=== PATIENT | female | born 1940 | race Caucasian/White ===

== ENCOUNTER → 2024-01-15 08:09 | Outpatient (REF) | payer MEDICARE, BC, SELFPAY | LOC: HWRAD 08:09 | PROVIDERS: ATTENDING PHYSICIAN Family Medicine | DX: J18.9 Pneumonia, unspecified organism (principal) | CPT/HCPCS: 71260; Q9967 ==

== ENCOUNTER 2024-06-23 16:45 | Inpatient (IN) | payer MEDICARE, BC, SELFPAY ==
[2024-06-23] VITALS (11 sets, daily range): BP systolic 122–165; BP diastolic 68–90; PULSE 99; BMI 32.4; BMI 31.0
[2024-06-23 09:27] LABS: % Basophils 0.6 % (0-2); % Eosinophils 2.2 % (0-6); % Immature Granulocytes 0.4 % (0-0.5); % Lymphocytes 7.8 % (20.5-51.1); % Monocytes 5.2 % (1.7-9.3); % Neutrophils 83.8 % (42.2-75.2); Absolute Basophils 0.1 10^3/uL (0-0.2); Absolute Eosinophils 0.2 10^3/uL (0-0.7); Absolute Lymphocytes 0.6 10^3/uL (1.2-3.4); Absolute Monocytes 0.4 10^3/uL (0.1-0.6); Absolute Neutrophils 6.8 10^3/uL (1.4-6.5); Hematocrit 38.5 % (37.0-47.0); Hemoglobin 12.5 g/dL (12.0-16.0); Mean Corp Hgb Conc. 32.5 g/dL (33.0-37.0); Mean Corpuscular Hgb 28.8 pg (27.0-31.0); Mean Corpuscular Volume 88.7 fL (81.0-99.0); Mean Platelet Volume 9.4 fL (7.4-10.4); Nucleated Red Blood Cells % 0 %; Platelet Count 296 10^3/uL (130-400); Red Blood Cell Count 4.34 10^6/uL (4.20-5.40); Red Cell Dist. Width 15.9 % (11.5-14.5); White Blood Cell Count 8.1 10^3/uL (4.8-10.8)
[2024-06-23 09:42] LABS: ALT (SGPT) 19 U/L (0-35); AST (SGOT) 23 U/L (14-36); Albumin 3.5 g/dl (3.5-5.0); Alkaline Phosphatase 102 U/L (38-126); Blood Urea Nitrogen 9 mg/dl (7-17); Calcium 9.5 mg/dl (8.4-10.2); Carbon Dioxide 29 mmol/L (22-30); Chloride 104 mmol/L (98-107); Glucose 104 mg/dl (70-99); Potassium 3.8 mmol/L (3.5-5.1); Sodium 138 mmol/L (135-145); Total Bilirubin 0.5 mg/dl (0.2-1.3); eGFR > 60.00
--- NOTE | 2024-06-23 11:05 | ED.GENMED ---
History of Present Illness
General
Chief Complaint: Breathing Problem
Source: patient
Exam Limitations: none
Time Seen by Provider: 06/23/24 10:40
Nursing documentation reviewed up to this point in time: agreed with
History of Present Illness
History of Present Illness:
83-year-old female with past medical history of COPD does not wear oxygen, abdominal aortic aneurysm, peripheral arterial disease hypertension hyperlipidemia presents here for evaluation. Patient complains of worsening shortness of breath for the
past several days to 1 week. She does have a history of COPD but typically is not that short of breath. Today she noticed he was very short of breath and noted that her pulse ox was 90% on room air but her heart rate was elevated in the 130s. She
does feel palpitations worse last night. She denies any associated chest pain. She denies any abdominal pain back pain. Patient reports she has some mild lower extremity swelling but this is not new for her.
Patient is a smoker. She is followed by booth manager Dr. Crews here
Past History
Past History
ED Past Medical History: HTN
ED Past Surgical History: Orthopedic
Review of Systems
Review of Systems
Allergies reviewed?: Yes
All Other Systems: ROS reviewed and negative except as documented in HPI and ROS
Constitutional: Reports no symptoms
Respiratory: Reports trouble breathing
Cardiac: Reports palpitations; Denies chest pain, diaphoresis or syncope
ABD/GI: Reports no symptoms
: Reports no symptoms
Musculoskeletal: Reports no symptoms
Skin: Reports no symptoms
Neurological: Reports no symptoms
Psychiatric: Reports no symptoms
Phy Exam
General Physical Exam
General Presentation: no apparent distress
General age: appears stated age
General Skin: warm and dry
General Habitus: normal
General Mental: alert
Cardiovascular Exam
Cardiovascular Exam: tachycardia
Pulmonary Exam
Pulmonary Exam: lungs clear and no respiratory distress
Neurological Exam
Neurological Exam: alert and oriented x3
Musculoskeletal Exam
Musculoskeletal Exam: full ROM
Skin Exam
Skin Exam: normal color and warm/dry
Scores
Heart Failure Risk
Heart Failure Risk Score: Not Applicable
Course
Orders/Labs/Results
Orders:
Orders
06/23/24 08:51
Electrocardiogram (*1) Urgent
Reason for Study: Chest Pain
EKG- Treatment ONCE
06/23/24 09:16
Complete Blood Count/With Diff Urgent
Comprehensive Metabolic Panel Urgent
TSH Reflex To Free T4 Urgent
Comment: ADD ON
06/23/24 11:03
Add On- LAB Urgent
Tests Added?: tsh with reflexive t4
Chest [CR Chest - 2 Views ] Urgent
Comment:
Reason For Exam: SOB
06/23/24 11:04
Electrocardiogram (*1) Stat
Reason for Study: Other
Other Reason for Exam: chest pain
EKG- Treatment ONCE
0.9% Sodium Chloride 500 ml [Nss] 500 ml IV BOLUS
06/23/24 12:42
DDimer [D-Dimer] Urgent
06/23/24 12:46
Dexamethasone Sod Phosphate [Decadron] 10 mg IV NOW STA
06/23/24 12:47
Albuterol Nebs [Ventolin Nebules] 2.5 mg INH R NOW STA
06/23/24 13:19
CT Chest PE Study Urgent
Comment:
Reason For Exam: sob elevated d dimer
Abnormal Lab Results
06/23/24 06/23/24
09:16 12:42
MCHC 32.5 L g/dL
(33.0-37.0)
RDW 15.9 H %
(11.5-14.5)
Absolute Neuts (auto) 6.8 H 10^3/uL
(1.4-6.5)
Absolute Lymphs (auto) 0.6 L 10^3/uL
(1.2-3.4)
Neutrophils % 83.8 H %
(42.2-75.2)
Lymphocytes % 7.8 L %
(20.5-51.1)
D-Dimer 2.00 H ug/mlFEU
(0.00-0.50)
Glucose 104 H mg/dl
(70-99)
Total Protein 6.0 L g/dl
(6.3-8.2)
06/23/24 09:16
06/23/24 09:16
Vital Signs
Initial and Last Documented VS:
Initial Vital Signs
Temp Pulse Resp BP Pulse Ox
97.6 F 89 16 150/85 98
06/23/24 08:49 06/23/24 08:49 06/23/24 08:49 06/23/24 08:49 06/23/24 08:49
Last Documented Vital Signs
Temp Pulse Resp BP Pulse Ox
97.6 F 111 25 146/76 96
06/23/24 08:49 06/23/24 14:00 06/23/24 14:00 06/23/24 14:00 06/23/24 14:00
MDM/Problems Addressed
MDM/Problems Addressed:
Patient is an 83-year-old female who presents with shortness of breath palpitations since last night. She is a smoker and has history of COPD she is followed by Dr. Crews.
Patient with some decreased breath sounds mild wheeze was given 1 nebulizer treatment with fluids because of elevated heart rate and IV Decadron. Because of persistent tachycardia and shortness of breath CT was done to rule out PE which was
negative. Patient however still with some shortness of breath and mildly tachycardic despite fluids labs unremarkable with normal white count normal renal function will admit
Chronic conditions affecting care:
copd/smoker
*Radiology
Radiology exam reviewed: radiology read reviewed
*Pulse Oximetry
Patient hypoxic: no
*EKG
Interpreted by ED Provider?: Yes
Heart Rate: 108
Rate: tachycardiac
Rhythm: PVC's
Ischemia: non-specific ST changes
*Equipment Lead Interpretation
Rate: tachycardiac
*Critical Care Note
Total Time (30-74mins, 75-104mins- exclusive of procedures): Not Applicable
ED Attending Note
-
Portions of this chart may have been created with voice recognition software.� Occasional wrong word or��sound alike� substitutions may have occurred due to the inherent limitations of voice recognition software.
Discharge Plan
Departure
Patient Disposition: Admit
Date of Disposition: 06/23/24
Time of Disposition: 16:06
Admit to: Med/Surg
Admit to doctor: hospitalist
Presentation/result/management discussed w/ accepting MD/DO: Hospitalist
Patient with high blood pressure during this ER visit?: Yes
Condition: Fair
Covid-19: Not Applicable
Discharge Problem:
copd exacerbation
Prescriptions:
No Action
cilostazol 100 mg Tablet
100 mg PO BID
cetirizine 10 mg Tablet
10 mg PO DAILY
gabapentin 300 mg Capsule
300 mg PO TID
zolpidem 10 mg Tablet
10 mg PO HS
Patient Comments:
LAST FILLED 10/16/22 #30 X30 DAYS SUPPLY
albuterol sulfate 90 mcg/actuation Hfa Aerosol Inhaler
2 puff INHALATION Q6HPRN PRN (Reason: sob)
Spiriva with HandiHaler 18 mcg Capsule, W/Inhalation Device
1 cap INHALATION DAILY
ferrous sulfate 324 mg (65 mg iron) Tablet,Delayed Release (Dr/Ec)
324 mg PO DAILY
fenofibrate 150 mg Capsule
150 mg PO DAILY
aspirin 81 mg Capsule
81 mg PO DAILY
atenolol-chlorthalidone 50-25 mg Tablet
0.5 tab PO DAILY
chlorthalidone 25 mg Tablet
25 mg PO DAILY
prednisone 10 mg tablet
10 mg PO DIRECTED Qty: 90 0RF
Rx Instructions:
4 tabs daily for 5 days, then 3 tabs x 5 days, then 2 tabs x 5 days, then 1 daily x 5days
amoxicillin-pot clavulanate 875-125 mg tablet
1 tab PO Q12H Qty: 14 0RF
doxycycline hyclate 100 mg capsule
100 mg PO BID Qty: 14 0RF
fluticasone propion-salmeterol [Advair Diskus] 250-50 mcg/dose Blister With Device
1 inh INHALATION BID
Referrals:
Renetta Young MD [Family Provider] -
Interventions
Interventions:
*Risk Screen - Suicide Last Done: 06/23/24 08:49
*General Assessment Last Done: 06/23/24 11:21
*Neglect/Abuse Screening Last Done: 06/23/24 08:49
*ED- Fall Risk Assessment Last Done: 06/23/24 11:21
*ED COVID-19 Vaccine History Last Done: 06/23/24 11:21
ED- Cardiac Assessment Last Done: 06/23/24 11:21
ED- Pulmonary Assessment Last Done: 06/23/24 11:21
Discharge Date and Time
Print Language: MONTSERRATIAN
[2024-06-23] MEDS: NSS 500 IV (11:26)
[2024-06-23 12:49] LABS: TSH Reflex To Free T4 2.44 uIU/ml (0.47-4.68)
[2024-06-23] MEDS: DECADRON 10 MG IV (12:50)
[2024-06-23] MEDS: VENTOLIN NEBULES 2.5 MG INH (12:50)
--- NOTE | 2024-06-23 16:27 | HPS.HSE ---
Family Physician
-
Family Physician: Renetta Young
Chief Complaint
-
Shortness of breath, palpitations
History of Present Illness
83-year-old female, lives alone, noticed increasing shortness of breath that started last evening before bed. Managed to fall asleep but when she woke up this morning had ongoing shortness of breath and palpitations prompting her evaluation in the
emergency room today.
Denies any sick contacts.
Has had a chronic cough productive of clear phlegm, possibly worse over the past month.
Not on home oxygen. She still smokes unfortunately.
Cannot remember the last time she was hospitalized for COPD exacerbation.
Medical History
Past Medical History
Past Medical History: Reports Other
Additional Past Medical History:
COPD/asthma overlap
Abdominal aortic aneurysm
Essential hypertension
PAD
Hyperlipidemia
MELVIN on CPAP
Lung nodules
Duodenal ulcer
Nephrolithiasis
Colon polyps
Past Surgical History: Reports Gynocological, Orthopedic and Other
Additional Past Surgical History:
Sigmoid resection�2007
Right total hip replacement�2009
Left total hip replacement�2011
Left hip wound dehiscence with wound VAC for 3 months
Bilateral knee replacement�2006
Social History
Tobacco: Smoker
Alcohol: Occasional
Drug: None
Personal:
Living: Alone
Employment: Not Employed
Family History
Family History: Not pertinent
Allergies / Home Medications
Allergies reflects when Allergies were last updated in [email or web address].
Home Medications with original date entered in [email or web address]
Allergy/Medication List:
Allergies
Allergy/AdvReac Type Severity Reaction Status Date / Time
adhesive Allergy EDEMA Verified 10/19/22 13:39
amlodipine besylate Allergy EDEMA Verified 10/19/22 13:39
[From [facility]]
beclomethasone dipropionate Allergy NIGHTMARES Verified 10/19/22 13:39
[From Qvar]
clindamycin Allergy Unknown Verified 10/19/22 13:39
meperidine HCl [From Demerol] Allergy Nausea Verified 10/19/22 13:39
morphine Allergy Nausea Verified 10/19/22 13:39
oxycodone HCl [From Percocet] Allergy Nausea Verified 10/19/22 13:39
sulfamethoxazole Allergy Unknown Verified 10/19/22 13:39
[From Bactrim]
tramadol Allergy Unknown Verified 10/19/22 13:40
trimethoprim [From Bactrim] Allergy Unknown Verified 10/19/22 13:39
varenicline Allergy Unknown Verified 10/19/22 13:40
oxycodone [From Percocet] AdvReac Mild Nausea Verified 10/19/22 21:59
Home Medications
albuterol sulfate 90 mcg/actuation aerosol inhaler 2 puff inhalation Q6HPRN PRN sob 10/19/22
aspirin 81 mg capsule 81 mg PO DAILY Blood Clot Prevention/Tx 10/19/22
cetirizine 10 mg tablet 10 mg PO DAILY Allergies 10/19/22
cilostazol 100 mg tablet 100 mg PO BID Heart Disease/Condition 10/19/22
fenofibrate 150 mg capsule 150 mg PO DAILY High Cholesterol 10/19/22
ferrous sulfate 324 mg (65 mg iron) tablet,delayed release 324 mg PO DAILY Supplement 10/19/22
gabapentin 300 mg capsule 300 mg PO TID Neurological Condition 10/19/22
tiotropium bromide 18 mcg capsule with inhalation device (Spiriva with HandiHaler) 1 cap inhalation DAILY Lung/Breathing Issues 10/19/22
zolpidem 10 mg tablet 10 mg PO HS Sleep 10/19/22
atenolol 50 mg-chlorthalidone 25 mg tablet 0.5 tab PO DAILY Blood Pressure 10/20/22
amoxicillin 875 mg-potassium clavulanate 125 mg tablet 1 tab PO Q12H #14 tabs 10/21/22
chlorthalidone 25 mg tablet 25 mg PO DAILY 10/21/22
doxycycline hyclate 100 mg capsule 100 mg PO BID #14 caps 10/21/22
fluticasone 250 mcg-salmeterol 50 mcg/dose blistr powdr for inhalation (Advair Diskus) 1 inh inhalation BID 10/21/22
prednisone 10 mg tablet 10 mg PO DIRECTED #90 tabs 10/21/22
Review of Systems
-
History Source: Patient
A 12 point ROS was completed and negative except as noted: Yes
Physical Exam
Vital Signs
Vital Signs
Temp Pulse Resp BP Pulse Ox
97.6 F 111 25 146/76 96
06/23/24 08:49 06/23/24 14:00 06/23/24 14:00 06/23/24 14:00 06/23/24 14:00
Physical Exam
General: Well Developed, Well Nourished, No Apparent Distress and Comfortable
HEENT: NormoCephalic, Anicteric and Moist mucous membranes
Respiratory: Wheezes
Cardiac: S1/S2 and Regular Rhythm
Breast: Deferred by me
GI: Soft, Non Tender and Non Distended
Genito-urinary: Deferred by me
Musculoskeletal: No Clubbing, No Cyanosis, Edema, Left Lower Extremity (Nonpitting) and Edema, Right Lower Extremity (Nonpitting)
Skin: Warm and Dry
Neuro: AO x 3
Hematologic/Lymphatic: No Lymphadenopathy
Psych: Calm
Laboratory Results
-
06/23/24 09:16
06/23/24 09:16
Laboratory Results
Total Bilirubin 0.5 mg/dl (0.2-1.3) 06/23/24 09:16
AST 23 U/L (14-36) 06/23/24 09:16
ALT 19 U/L (0-35) 06/23/24 09:16
Alkaline Phosphatase 102 U/L (38-126) 06/23/24 09:16
Impression/Plan
-
Acute hypoxic respiratory insufficiency -suspect related to acute COPD exacerbation. Reportedly pulse ox was in the 80% range at home according to patient. Does not use oxygen at home.
Admit to MedSurg. Initiate oxygen to keep pulse ox at 90% or better.
Acute COPD exacerbation -continue steroids, nebs, home inhalers. Check influenza and COVID.
Provide Acapella, incentive spirometer, Mucinex.
She is known to the pulmonary service, Dr. Rees.
Tobacco dependence -she does not feel ready to quit. Provide nicotine replacement therapy as needed.
Essential hypertension -resume losartan.
Hyperlipidemia
PAD
MELVIN
Chronic pulmonary nodules -appear benign and they are followed by the pulmonary service.
Obesity due to excess calories
Full code
Updated patient's son at the bedside.
[2024-06-23 17:01] LABS: COVID-19 Antigen Negative (Negative)
[2024-06-23] MEDS: XOPENEX 1.25 MG INHALANT SOLUTION INH ×2 (17:49→22:28)
[2024-06-23] MEDS: TYLENOL 650 MG PO (21:37)
[2024-06-23] MEDS: MUCINEX PO (21:38)
[2024-06-23] MEDS: PLETAL 100 MG PO (21:38)
[2024-06-23] MEDS: AMBIEN 10 MG PO (21:38)
[2024-06-23] MEDS: ASPIR LOW (ENTERIC COATED) 81 MG PO (21:38)
[2024-06-23] MEDS: NEURONTIN 300 MG PO (21:38)
[2024-06-23] MEDS: LOVENOX 40 MG SC (21:38)
[2024-06-23] MEDS: SPIRIVA RESPIMAT 2.5 MCG INH (22:27)
[2024-06-23] MEDS: ADVAIR HFA 230/21 MCG INHALER 2 PUFF INH (22:28)
[2024-06-24 03:00] VITALS: BP 144/77
[2024-06-24] MEDS: DECADRON 4 MG IV ×3 (06:00→22:13)
[2024-06-24] MEDS: XOPENEX 1.25 MG INHALANT SOLUTION INH ×3 (07:15→20:23)
[2024-06-24] MEDS: ADVAIR HFA 230/21 MCG INHALER 2 PUFF INH ×2 (07:15→20:23)
[2024-06-24] MEDS: SPIRIVA RESPIMAT 2.5 MCG 2 PUFF INH (07:16)
[2024-06-24] MEDS: NEURONTIN 300 MG PO ×3 (07:40→22:08)
[2024-06-24] MEDS: MUCINEX 600 MG PO ×2 (07:40→21:00)
[2024-06-24] MEDS: COZAAR 25 MG PO (07:40)
[2024-06-24] MEDS: ZYRTEC 10 MG PO (07:41)
[2024-06-24] MEDS: PLETAL 100 MG PO (07:41)
[2024-06-24 07:43] VITALS: BP 161/79
[2024-06-24] MEDS: TRICOR 145 MG PO (07:44)
--- NOTE | 2024-06-24 11:15 | W.PN.HOSP.TC ---
Today's Communication/Plan
-
Continue steroids, nebs, inhalers
Add azithromycin
Provide Acapella, incentive spirometer
Stop losartan
start diltiazem
Assessment / Plan
Assessment / Plan
Gen-AAOx3, NAD
HEENT-NC, AT, anicteric, clear oral mm
Neck-supple
CV-reg, no M, +S1/S2
Lungs-mild expiratory wheezing bilaterally
Abd-soft, NT, ND
Ext-no edema
Musculoskeletal-no cyanosis, clubbing
Skin-warm and dry
Neuro-grossly non-focal
Psych-calm, cooperative
Acute hypoxic respiratory insufficiency -suspect related to acute COPD exacerbation. Reportedly pulse ox was in the 80% range at home according to patient. Does not use oxygen at home.
Oxygenation adequate on 2 L, wean down as able.
CT chest negative for pulmonary embolism. Changes of emphysema noted. Chronic appearing pulmonary nodules noted.
Acute COPD exacerbation -continue steroids, nebs, home inhalers. Influenza and COVID-negative. Add azithromycin.
Provide Acapella, incentive spirometer, Mucinex.
She is known to the pulmonary service, Dr. Rees.
Tobacco dependence -she does not feel ready to quit. Provide nicotine replacement therapy as needed.
Essential hypertension -she is requesting that we discontinue losartan due to possible side effects. Will start diltiazem. Patient agreeable.
Hyperlipidemia
PAD -reduce dose of cilostazol by 50% given potential interaction with diltiazem. Discussed with patient.
MELVIN
Chronic pulmonary nodules -appear benign and they are followed by the pulmonary service.
Obesity due to excess calories
Full code
Anticipated Discharge: Within 24 hours
Subjective/Interval History
-
Date of Service: June 24, 2024
Patient seen and examined. No new complaints. Still with cough and wheezing.
Objective Data
-
Vital Signs:
Vital Signs
Temp Pulse Resp BP Pulse Ox
97.7 F 97 16 161/79 95
06/24/24 03:00 06/24/24 07:43 06/24/24 07:43 06/24/24 07:43 06/24/24 07:55
Review of Systems
-
History Source: Patient
All other systems: Reviewed and negative
[2024-06-24] MEDS: ZITHROMAX 500 MG PO (11:50)
[2024-06-24] MEDS: TYLENOL 650 MG PO (13:51)
[2024-06-24] MEDS: CARDIZEM 30 MG PO ×2 (15:23→22:11)
[2024-06-24 16:00] VITALS: BP 109/61
--- NOTE | 2024-06-24 16:53 | CM ---
Alert awake oriented patient who lives alone in independent living at [facility].Her 2 month ago.Support given. She lives in 1 story home with 1 step to enter.She is independent in driving and in all activities of daily
living.Offered VN she declined.
CPAP with Rezmed walker cane shower chair
Never had VN/Had [facility] and acute rehab stay hx
Pharmacy [facility]
PCP Dr Young
PLAN Home no needs
[2024-06-24] MEDS: LOVENOX 40 MG SC (17:34)
[2024-06-24] MEDS: PLETAL 50 MG PO (20:58)
[2024-06-24] MEDS: ASPIR LOW (ENTERIC COATED) 81 MG PO (22:08)
[2024-06-24] MEDS: AMBIEN 10 MG PO (22:08)
[2024-06-24 22:24] VITALS: PULSE 91
[2024-06-24 22:55] VITALS: BP 114/66
[2024-06-25] VITALS (7 sets, daily range): BP systolic 121–146; BP diastolic 66–91; PULSE 70–90; O2SAT 94–97
[2024-06-25] MEDS: DECADRON 4 MG IV (06:05)
[2024-06-25] MEDS: XOPENEX 1.25 MG INHALANT SOLUTION INH ×3 (07:30→20:35)
[2024-06-25] MEDS: SPIRIVA RESPIMAT 2.5 MCG 2 PUFF INH (07:31)
[2024-06-25] MEDS: ADVAIR HFA 230/21 MCG INHALER 2 PUFF INH ×2 (07:31→20:35)
[2024-06-25] MEDS: TRICOR 145 MG PO (08:53)
[2024-06-25] MEDS: ZITHROMAX 500 MG PO (08:53)
[2024-06-25] MEDS: MUCINEX 600 MG PO ×2 (08:53→21:36)
[2024-06-25] MEDS: NEURONTIN 300 MG PO ×3 (08:53→21:38)
[2024-06-25] MEDS: PLETAL 50 MG PO ×2 (08:53→21:38)
[2024-06-25] MEDS: CARDIZEM 30 MG PO ×3 (08:53→21:36)
[2024-06-25] MEDS: ZYRTEC 10 MG PO (08:53)
--- NOTE | 2024-06-25 11:39 | W.PN.HOSP.TC ---
Today's Communication/Plan
-
Possible discharge
Assessment / Plan
Assessment / Plan
Gen-AAOx3, NAD
HEENT-NC, AT, anicteric, clear oral mm
Neck-supple
CV-reg, no M, +S1/S2
Lungs-mild expiratory wheezing bilaterally
Abd-soft, NT, ND
Ext-no edema
Musculoskeletal-no cyanosis, clubbing
Skin-warm and dry
Neuro-grossly non-focal
Psych-calm, cooperative
Acute hypoxic respiratory insufficiency -suspect related to acute COPD exacerbation. Reportedly pulse ox was in the 80% range at home according to patient. Does not use oxygen at home.
Oxygenation adequate on 2 L, wean down as able.
CT chest negative for pulmonary embolism. Changes of emphysema noted. Chronic appearing pulmonary nodules noted.
Acute COPD exacerbation -continue steroids, nebs, home inhalers. Influenza and COVID-negative. Continue azithromycin. Will change Decadron to prednisone and taper.
Continue Acapella, incentive spirometer, Mucinex.
She is known to the pulmonary service, Dr. Rees.
Clinically improving COPD exacerbation. She is feeling better.
Tobacco dependence -she does not feel ready to quit. Provide nicotine replacement therapy as needed.
Essential hypertension -losartan discontinued as per patient request. Continue diltiazem.
Hyperlipidemia
PAD -reduce dose of cilostazol by 50% given potential interaction with diltiazem. Discussed with patient.
MELVIN -continue BiPAP at nighttime.
Chronic pulmonary nodules -appear benign and they are followed by the pulmonary service.
Obesity due to excess calories
Full code
Dispo -possible discharge later today if she remains stable. Patient agreeable. Outpatient follow-up.
Anticipated Discharge: Today
Subjective/Interval History
-
Date of Service: June 25, 2024
Patient seen and examined. Overall feeling better. No complaints.
Objective Data
-
Vital Signs:
Vital Signs
Temp Pulse Resp BP Pulse Ox
97.5 F 84 16 146/85 96
06/25/24 07:44 06/25/24 08:53 06/25/24 07:44 06/25/24 08:53 06/25/24 07:44
I&O
06/24/24 06/25/24 06/26/24
06:59 06:59 06:59
Intake Total 1200 / 1200
Balance 1200 / 1200
Review of Systems
-
History Source: Patient
All other systems: Reviewed and negative
[2024-06-25] MEDS: DELTASONE 30 MG PO (12:21)
--- NOTE | 2024-06-25 14:31 | PTOTSP ---
The patient is independent with ambulation using her SPC, short of breath with activity on room air. The patient demonstrates good insight and understands to take breaks as needed. Patient has a pulse oximeter at home to monitor her oxygen levels.
No PT needs identified at this time, will sign off.
[2024-06-25] MEDS: LOVENOX 40 MG SC (17:58)
[2024-06-25] MEDS: TYLENOL 650 MG PO (21:32)
[2024-06-25] MEDS: ASPIR LOW (ENTERIC COATED) 81 MG PO (21:37)
[2024-06-25] MEDS: AMBIEN 10 MG PO (21:37)
[2024-06-26 03:20] VITALS: PULSE 88
[2024-06-26 07:30] VITALS: BP 142/88
[2024-06-26] MEDS: SPIRIVA RESPIMAT 2.5 MCG 2 PUFF INH (07:41)
[2024-06-26] MEDS: ADVAIR HFA 230/21 MCG INHALER 2 PUFF INH (07:41)
[2024-06-26] MEDS: XOPENEX 1.25 MG INHALANT SOLUTION INH ×2 (07:42→14:05)
[2024-06-26] MEDS: DELTASONE 50 MG PO (08:54)
[2024-06-26] MEDS: NEURONTIN 300 MG PO (08:54)
[2024-06-26] MEDS: PLETAL 50 MG PO (08:54)
[2024-06-26] MEDS: ZITHROMAX 500 MG PO (08:55)
[2024-06-26] MEDS: ZYRTEC 10 MG PO (08:55)
[2024-06-26] MEDS: TRICOR 145 MG PO (08:55)
[2024-06-26] MEDS: MUCINEX 600 MG PO (08:55)
[2024-06-26] MEDS: CARDIZEM 30 MG PO (08:55)
--- NOTE | 2024-06-26 12:21 | W.DS.TRANS ---
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
-
Discharge Instructions:
Discharge Diagnosis/Procedures COPD exacerbation
Diet Regular
Activity As tolerated
Driving Restrictions As prior to admission
Bathing Restrictions None
Instructions:
Stand-Alone Forms:
Changes to Home Medications: Yes
Discharge Medications:
DC Medications w/original date entered in [employer]
albuterol sulfate 90 mcg/actuation aerosol inhaler 2 puff inhalation R Q4HPRN PRN sob 10/19/22
cetirizine 10 mg tablet 10 mg PO DAILY Allergies 10/19/22
gabapentin 300 mg capsule 300 mg PO TID Neurological Condition 10/19/22
tiotropium bromide 18 mcg capsule with inhalation device (Spiriva with HandiHaler) 1 cap inhalation DAILY Lung/Breathing Issues 10/19/22
zolpidem 10 mg tablet 10 mg PO HS Sleep 10/19/22
aspirin 81 mg tablet,delayed release 81 mg PO HS Blood Clot Prevention/Tx 06/23/24
fenofibrate nanocrystallized 145 mg tablet 145 mg PO DAILY High Cholesterol 06/23/24
fluticasone 250 mcg-salmeterol 50 mcg/dose blistr powdr for inhalation (Manpreetxela Inhub) 1 inh inhalation R BID COPD 06/23/24
therapeutic multivitamin 1 tab PO DAILY Supplement 06/23/24
vit C 250 mg-vit E 90 mg-zinc 40 mg-copper 1 if-eynbcs-nqnivr capsule (PreserVision AREDS-2) 1 tab PO BID Supplement 06/23/24
cilostazol 100 mg tablet 50 mg (1/2 x 100 mg) PO BID #60 tabs 06/25/24
diltiazem HCl 120 mg capsule,24 hr,extended release 120 mg PO DAILY #30 caps 06/25/24
guaifenesin 600 mg tablet, extended release 12 hr 600 mg PO Q12 #0 tabs 06/25/24
prednisone 10 mg tablet 10 mg PO DIRECTED #30 tabs 06/25/24
Home Medication Changes
Cilostazol dose reduced.
Pending Results: No
--- NOTE | 2024-06-26 12:22 | W.PN.HOSP.TC ---
Today's Communication/Plan
-
discharge
Assessment / Plan
Assessment / Plan
Gen-AAOx3, NAD
HEENT-NC, AT, anicteric, clear oral mm
Neck-supple
CV-reg, no M, +S1/S2
Lungs-clear
Abd-soft, NT, ND
Ext-no edema
Musculoskeletal-no cyanosis, clubbing
Skin-warm and dry
Neuro-grossly non-focal
Psych-calm, cooperative
Acute hypoxic respiratory insufficiency -suspect related to acute COPD exacerbation. Reportedly pulse ox was in the 80% range at home according to patient. Does not use oxygen at home.
Oxygenation improved. Ambulatory pulse ox on RA was normal today.
CT chest negative for pulmonary embolism. Changes of emphysema noted. Chronic appearing pulmonary nodules noted.
Acute COPD exacerbation -continue steroids, nebs, home inhalers. Influenza and COVID-negative. Completed course of Azithro. Will change Decadron to prednisone and taper.
Continue Acapella, incentive spirometer, Mucinex.
She is known to the pulmonary service, Dr. Rees.
Clinically improving COPD exacerbation. She is feeling better. Lungs are now clear.
Tobacco dependence -she does not feel ready to quit. Provide nicotine replacement therapy as needed.
Essential hypertension -losartan discontinued as per patient request. Continue diltiazem.
Hyperlipidemia
PAD -reduce dose of cilostazol by 50% given potential interaction with diltiazem. Discussed with patient.
MELVIN -continue BiPAP at nighttime.
Chronic pulmonary nodules -appear benign and they are followed by the pulmonary service.
Obesity due to excess calories
Full code
Dispo -med stable for d/c home today. Follow up with PCP, pulmonary.
33 min spent in discharge process.
Anticipated Discharge: Today
Subjective/Interval History
-
Date of Service: June 26, 2024
Patient seen/examined. No complaints.
Objective Data
-
Vital Signs:
Vital Signs
Temp Pulse Resp BP Pulse Ox
97.3 F 89 16 142/88 96
06/26/24 07:30 06/26/24 08:55 06/26/24 07:44 06/26/24 08:55 06/26/24 07:44
I&O
06/25/24 06/26/24 06/27/24
06:59 06:59 06:59
Intake Total 1200 / 1200 660 / 660 240 / 240
Output Total 120 / 120
Balance 1200 / 1200 660 / 660 120 / 120
Review of Systems
-
History Source: Patient
All other systems: Reviewed and negative
[2024-06-26 14:15] VITALS: BP 140/80
--- NOTE | 2024-06-26 15:29 | CM ---
MD entered order for discharge.
Spoke with pt and her son Zander . Son said he will pick her up and drive her home.
Pt requested [facility] referral placed.
IMM reviewed pt agrees with dc.
PLAN Home with [facility] fax [phone]
== END 2024-06-26 14:51 | disposition home health service (06) | DRG 192 ==
LOC: 3 WEST ACU 16:45
PROVIDERS: Nurse Practitioner; ADMITTING PHYSICIAN Hospitalist; EMERGENCY PHYSICIAN Emergency Medicine; FAMILY PHYSICIAN Family Medicine
PROC: 5A09357 Assistance with Respiratory Ventilation, Less than 24 Consecutive Hours, Continuous Positive Airway Pressure (ICD-10-PCS; 2024-06-24)
DX: J44.1 Chronic obstructive pulmonary disease with (acute) exacerbation (principal); I10 Essential (primary) hypertension; G47.33 Obstructive sleep apnea (adult) (pediatric); E78.5 Hyperlipidemia, unspecified; F17.200 Nicotine dependence, unspecified, uncomplicated; I71.40 Abdominal aortic aneurysm, without rupture, unspecified; J43.9 Emphysema, unspecified; K26.9 Duodenal ulcer, unspecified as acute or chronic, without hemorrhage or perforation; N20.0 Calculus of kidney; R09.02 Hypoxemia; R06.89 Other abnormalities of breathing; R91.8 Other nonspecific abnormal finding of lung field; I73.9 Peripheral vascular disease, unspecified; E66.09 Other obesity due to excess calories; Z68.32 Body mass index [BMI] 32.0-32.9, adult; Z11.52 Encounter for screening for COVID-19; Z96.653 Presence of artificial knee joint, bilateral; Z96.643 Presence of artificial hip joint, bilateral; Z88.1 Allergy status to other antibiotic agents; Z88.5 Allergy status to narcotic agent; Z79.82 Long term (current) use of aspirin; Z79.51 Long term (current) use of inhaled steroids; Z79.899 Other long term (current) drug therapy
CPT/HCPCS: 71046; 71275; 80053; 84443; 85025; 85379; 87502; 87811; 93005; 94640; 94660; 96361; 96374; 97161; 97166; 99285; 99406; Q9967